=== PATIENT | male | born 1990 | race American Indian/Alaskan Native ===

== ENCOUNTER 2019-05-25 03:02 | Emergency (ER) | payer SELFPAY ==
[2019-05-25 03:12] VITALS: BP 135/82
== END 2019-05-25 07:00 | disposition left against medical advice (07) ==
LOC: ED 03:02
DX: K08.89 Other specified disorders of teeth and supporting structures (principal); Z53.21 Procedure and treatment not carried out due to patient leaving prior to being seen by health care provider